=== PATIENT | male | born 1950 | race American Indian/Alaskan Native ===

== ENCOUNTER 2020-12-05 09:58 | Emergency (ER) | payer MEDICARE, OTHER ==
[2020-12-05] MEDS ORDERED: Acetaminophen/oxyCODONE 325-5 MG Tab PO ONE (10:52)
[2020-12-05] MEDS ORDERED: Ondansetron 4 MG Tab.DIS PO ONE (10:53)
--- NOTE | 2020-12-05 10:53 | EDM.PDOC ---
ED HPI GENERAL MEDICAL PROBLEM - General Chief Complaint: General Stated Complaint: ARM AND SIDE PAIN Time Seen by Provider: 12/05/20 10:38 Source of Information: Reports: Patient, Family (spouse) History Limitations: Reports: No Limitations - History of Present Illness INITIAL COMMENTS - FREE TEXT/NARRATIVE: 69-year-old male presents to the ED in accompaniment with of his . He is of [place]. He states he has known cirrhosis of the liver and has been getting intermittent paracenteses done and thoracentesis on the right side for almost 2 months on a weekly basis. He had thoracentesis done on the right side posterior laterally in [place] yesterday. He states after the procedure he had pain at the puncture site and it worsened overnight with difficulty taking any breath and with certain movements. He states they got only about 300 mils of fluid yesterday. No fever no chills. Pain with every breath which she describes more as a dull ache with occasional mild sharp pain. Onset: Gradual Onset Date: 12/04/20 Onset Time: 15:00 Duration: Hour(s):, Getting Worse Location: Reports: Chest (Pain at thoracentesis puncture wound site posterior lateral right chest.) Quality: Reports: Ache, Stabbing Severity: Moderate (Occasional sharp stabbing component to the pain 7-8 out of 10) Improves with: Reports: Rest Worsens with: Reports: Other (Worse with deep breathing or movement) Context: Reports: Trauma (Post thoracentesis right chest wall pain). Denies: Activity, Exercise, Lifting, Sick Contact Associated Symptoms: Reports: No Other Symptoms. 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.) Right Posterior Back Pain Score (Numeric/FACES): 7 - Related Data Allergies Allergy/AdvReac Type Severity Reaction Status Date / Time No Known Allergies Allergy Verified 12/05/20 10:27 Home Meds: Home Meds oxyCODONE HCl [Roxicodone] 5 mg PO Q4H PRN #24 tablet 12/05/20 [Rx] Past Medical History Gastrointestinal History: Reports: Cirrhosis (Diagnosed within the last year.) Genitourinary History: Reports: Dialysis, Renal Disease Endocrine/Metabolic History: Reports: Diabetes, Type II - Past Surgical History Respiratory Surgical History: Reports: Thoracentesis Social & Family History - Tobacco Use Tobacco Use Status *Q: Never Tobacco User - Recreational Drug Use Recreational Drug Use: No ED ROS GENERAL - Review of Systems Review Of Systems: See Below Constitutional: Reports: Fatigue, Decreased Appetite. Denies: Fever, Chills, Malaise, Weakness HEENT: Reports: No Symptoms Respiratory: Reports: Shortness of Breath, Pleuritic Chest Pain, Cough. Denies: Wheezing, Sputum (Occasional cough), Hemoptysis Cardiovascular: Reports: Chest Pain (Currently experiencing right posterior lateral chest wall pain at site of recent thoracentesis done yesterday in [place]. Described as a deep aching pain worsened by deep breathing with occasional sharp stabbing pain.), Dyspnea on Exertion. Denies: Blood Pressure Problem, Edema, Lightheadedness, Orthopnea Endocrine: Reports: Fatigue GI/Abdominal: Reports: Diarrhea (Ulcer on the looser side.). Denies: Abdominal Pain : Reports: Frequency Musculoskeletal: Reports: Neck Pain, Shoulder Pain, Back Pain, Joint Pain Skin: Reports: No Symptoms Neurological: Reports: Dizziness (Gets dizzy) Psychiatric: Reports: No Symptoms Hematologic/Lymphatic: Reports: No Symptoms Immunologic: Reports: No Symptoms ED EXAM, GENERAL - Physical Exam Exam: See Below Exam Limited By: No Limitations General Appearance: Alert, WD/WN, No Apparent Distress, Other (Temperature is 36.1 degrees heart rate 78 and sinus respiratory is 18 with O2 sats of 99% on room air. BP 1 5675.) Eye Exam: Bilateral Eye: Normal Inspection (Very mild scleral icterus. No blepharal pallor), PERRL Respiratory/Chest: No Respiratory Distress, Decreased Breath Sounds (Creased air entry to the lower 20% of both lung soni.), Other (Does have 2 puncture wounds posterior lateral chest covered by skin glue. They look okay with minimal associated swelling. This is the site of his pain however.). No: Lungs Clear, Normal Breath Sounds, Rales, Rhonchi, Wheezing Cardiovascular: Regular Rate, Rhythm, No Gallop, No Murmur, No Rub. No: No Edema Peripheral Pulses: 2+: Carotid (L), Carotid (R), Posterior Tibial (L), Posterior Tibial (R), Dorsalis Pedis (L), Dorsalis Pedis (R) GI/Abdominal: Normal Bowel Sounds, Soft, Non-Tender, No Organomegaly, No Mass, Pelvis Stable, Distended (And firm to palpation. Mild tympany upper abdomen S mild aerophagia.) Back Exam: No: CVA Tenderness (L), CVA Tenderness (R) Extremities: Normal Inspection, Normal Range of Motion, No Pedal Edema, Pedal Edema (Mild pedal edema both lower extremities 2+) Neurological: Alert ( bilaterally), Oriented, CN II-XII Intact, Normal Cognition Psychiatric: Normal Affect, Normal Mood Skin Exam: Warm, Dry, Intact, Normal Color, No Rash Course - Vital Signs Last Recorded V/S: Last Vital Signs Temp 36.1 C 12/05/20 10:23 Pulse 72 12/05/20 11:47 Resp 18 12/05/20 11:47 BP 139/80 12/05/20 11:47 Pulse Ox 100 12/05/20 11:47 - Orders/Labs/Meds Meds: Medications Discontinued Medications Generic Name Dose Route Start Last Admin Trade Name Freq PRN Reason Stop Dose Admin Ondansetron HCl 4 mg 12/05/20 10:53 12/05/20 11:01 Ondansetron 4 Mg Tab.Dis PO 12/05/20 10:54 4 mg ONETIME ONE Administration Oxycodone/Acetaminophen 2 tab 12/05/20 10:52 12/05/20 11:00 Acetaminophen/Oxycodone 325-5 Mg Tab PO 12/05/20 10:53 2 tab ONETIME ONE Administration - Radiology Interpretation Free Text/Narrative:: 69-year-old male presents to the ED post thoracentesis done in [place] yesterday. He is having pain which is constant a deep aching pain as well as intermittent sharp stabbing pain with deep inspiration at the site of the puncture wounds posterior lateral right chest. He has been having thoracenteses done on a weekly basis due to cirrhosis of liver and pleural effusions. He has no fever chills and O2 sats are 99%. Decreased air entry to the lower 20% lung soni bilaterally. Plan chest x-ray will be done. He was given 2 Percocet 5/325 mg tablets orally for pain relief with Zofran 4 mg sublingual. - Re-Assessments/Exams Free Text/Narrative Re-Assessment/Exam: 12/05/20 11:25 1 view chest x-ray performed reveals no pneumothorax. He does have a small right-sided pleural effusion hazy density within the right lung base is seen most likely due to atelectasis. There is minimal effusion also on the left side with blunting of the costophrenic angle. Lungs are otherwise clear. Heart size and mediastinum are normal. 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 Milder changes on the right side. Current pain appears to be musculoskeletal likely from inflammation or hematoma formation within the intercostal muscle at thoracentesis puncture site. Possible intercostal nerve injury as well. Will treat simply for pain with Roxicodone tablets 5 mg 1 or 2 every 4-6 hours necessary for pain relief for the next few days. Departure - Departure Time of Disposition: 11:26 Disposition: Home, Self-Care 01 Condition: Fair Clinical Impression: Right-sided chest wall pain - Discharge Information *PRESCRIPTION DRUG MONITORING PROGRAM REVIEWED*: No *COPY OF PRESCRIPTION DRUG MONITORING REPORT IN PATIENT FLAVIO: No Prescriptions: oxyCODONE HCl [Roxicodone] 5 mg PO Q4H PRN #24 tablet PRN Reason: Thoracentesis site chest wall Instructions: Chest Wall Pain, [id number] Referrals: PCP,Not In Area [Primary Care Provider] - Forms: ED Department Discharge Additional Instructions: Evaluation in the emergency room today in regards to pain at recent thoracentesis site done in [place] yesterday. Chest x-ray reveals only a small layer of fluid in the bottom of your right lung and only trace of fluid in the bottom of the left lung. There is no pneumothorax or collapsed lung. No abnormalities visualized within the rib. I believe current pain syndrome is coming from inflammation and likely bleeding of the muscle in between the ribs which we call intercostal muscles. Possible intercostal nerve injury could cause this type of pain as well. Treatment is time to heal. Suggest use of Roxicodone tablets 5 mg strength 1 or 2 every 4-6 hours necessary for pain relief. Expect gradual improvement over the next 5 to 7 days. Of note pain medicine will slow down the bowel and cause constipation and if this is an issue you may need to berry picker a stool softener such as Colace 100 mg twice daily to prevent constipation from occurring. Sepsis Event Note (ED) - Evaluation Sepsis Screening Result: No Definite Risk - Focused Exam Vital Signs: Vital Signs Temp Pulse Resp BP Pulse Ox 12/05/20 11:47 72 18 139/80 100 12/05/20 10:23 36.1 C 78 18 156/75 H 99
--- NOTE | 2020-12-05 11:36 | CR ---
Chest: Portable view of the chest was obtained. Comparison: No prior chest imaging is available. Small right-sided pleural effusion is seen. Hazy density within the right lung base is seen most likely due to atelectasis. Lungs otherwise are clear. Heart size and mediastinum are normal. Degenerative change is seen within both shoulders. Impression: 1. Small right-sided pleural effusion with mild density within the right lung base most likely due to atelectasis. 2. Other findings as noted above. Nothing acute is otherwise seen. Diagnostic code #2
== END 2020-12-05 11:47 | disposition home or self-care (01) ==
LOC: JD.ED 09:58
DX: R07.89 Other chest pain (principal); E11.9 Type 2 diabetes mellitus without complications
CPT/HCPCS: 71045; 99283; A9270